=== PATIENT | female | born 1950 | race Caucasian/White ===

== ENCOUNTER → 2018-04-07 14:02 | Outpatient (CLI) | payer MEDICARE, OTHER, SELFPAY | PROVIDERS: PCP Physician Assistant; Visit Provider Physician Assistant | DX: Z78.0 Asymptomatic menopausal state (principal); R29.890 Loss of height; Z90.722 Acquired absence of ovaries, bilateral; Z82.62 Family history of osteoporosis; Z87.891 Personal history of nicotine dependence | CPT/HCPCS: 77080 ==

== ENCOUNTER → 2020-08-03 13:51 | Outpatient (CLI) | payer MEDICARE, OTHER, SELFPAY ==
--- NOTE | 2020-08-03 13:54 | DI.RAD.S_ITS ---
PROCEDURE: XR LUMBAR SPINE 2-3V INDICATIONS: Ventricular premature depolarization TECHNIQUE: 3 views of the lumbar spine were acquired. COMPARISON: None. FINDINGS: Bones: No fracture. Multilevel degenerative endplate sclerosis and spurring. Diffuse facet arthropathy. Severe narrowing of the L2-L3 and L3-L4 disc spaces. Moderate narrowing of the remaining lumbar disc spaces. Grade 1 retrolisthesis of L2 on L3 and L3 on L4. Grade 1 anterolisthesis of L4 on L5. Levoscoliosis. Soft tissues: Overlying bowel gas pattern is normal. No suspicious soft tissue calcifications. IMPRESSION: Levoscoliosis and multilevel lumbar spondylosis and facet arthropathy. Multilevel spondylolisthesis as above. Dictated by: Ronald Hernandez M.D. on 08/03/2020 at 17:41 Approved by: Ronald Hernandez M.D. on 08/03/2020 at 17:43
== END ==
PROVIDERS: PCP Student in an Organized Health Care Education/Training Program; Referring Provider Student in an Organized Health Care Education/Training Program; Visit Provider Student in an Organized Health Care Education/Training Program
DX: M54.31 Sciatica, right side (principal); M54.32 Sciatica, left side; M47.816 Spondylosis without myelopathy or radiculopathy, lumbar region; M47.817 Spondylosis without myelopathy or radiculopathy, lumbosacral region; M41.9 Scoliosis, unspecified; M43.16 Spondylolisthesis, lumbar region
CPT/HCPCS: 72100